=== PATIENT | female | born 2000 | race Caucasian/White ===

== ENCOUNTER 2018-05-14 10:40 | Emergency (ER) | payer MEDICAID, OTHER | END 2018-05-14 12:05 | disposition home or self-care (01) | LOC: FTE 10:40 | DX: J06.9 Acute upper respiratory infection, unspecified (principal) | CPT/HCPCS: 99284; Z7502 ==

== ENCOUNTER 2018-07-24 20:24 | Emergency (ER) | payer BC, MEDICAID ==
[2018-07-24 21:31] LABS: ADD MAN DIFF? NO
[2018-07-24] MEDS: KETOROLAC 30 MG INJ IV (21:35)
[2018-07-24] MEDS: SODIUM CHLORIDE 0.9% 1L BAG IV* (21:35)
[2018-07-24 21:38] LABS: WHITE BLOOD COUNT 4.5 10^3/ul (4.8-10.8)
[2018-07-24 21:38] LABS: BASOPHILS % 0.2 % (0.0-2.0); EOSINOPHILS % 0.2 % (0.0-7.0); HEMOGLOBIN 11.1 g/dl (12.0-16.0); LYMPHOCYTES # 0.7 10^3/ul (0.8-2.9); LYMPHOCYTES % 16.6 % (18.0-55.0); MEAN CORPUSCULAR HEMOGLOBIN 25.4 pg (29.0-33.0); MEAN CORPUSCULAR HGB CONC 30.8 g/dl (32.0-37.0); MEAN CORPUSCULAR VOLUME 82.4 fl (72.0-104.0); MEAN PLATELET VOLUME 10.8 fl (7.4-10.4); MONOCYTE # 0.7 10^3/ul (0.3-0.9); MONOCYTES % 15.4 % (0.0-13.0); NEUTROPHILS % 67.4 % (30.0-74.0); PLATELET COUNT 285 10^3/UL (140-415); RED BLOOD COUNT 4.37 10^6/ul (4.20-5.40); RED CELL DISTRIBUTION WIDTH 14.7 % (11.5-14.5)
[2018-07-24 21:56] LABS: INR 1.02; PROTIME 13.5 Sec (11.9-14.9); PT RATIO 1.1
[2018-07-24 21:57] LABS: PARTIAL THROMBOPLASTIN TIME 34.8 Sec (25.0-35.0)
[2018-07-24 21:58] LABS: ANION GAP 12 (8-16); BLOOD UREA NITROGEN 7 mg/dl (7-20); CALCIUM 9.3 mg/dl (8.4-10.2); CARBON DIOXIDE 27 mmol/L (21-31); CHLORIDE 104 mmol/L (97-110); CREATINE KINASE 70 IU/L (23-200); CREATININE 0.79 mg/dl (0.44-1.00); GLUCOSE 98 mg/dl (70-220); POTASSIUM 3.6 mmol/L (3.5-5.1); SODIUM 139 mmol/L (135-144)
[2018-07-24 21:59] LABS: LACTIC ACID 0.8 mmol/L (0.5-2.0)
[2018-07-24 22:10] LABS: CK-MB < 0.22 ng/ml (0.0-2.4); TROPONIN-I < 0.012 ng/ml (0.000-0.120)
[2018-07-24 22:11] LABS: ADD UMIC NO; UR ASCORBIC ACID NEGATIVE (NEGATIVE); UR BILIRUBIN (Dip) NEGATIVE (NEGATIVE); UR BLOOD (Dip) NEGATIVE (NEGATIVE); UR CLARITY SLIGHTLY CLOUDY (CLEAR); UR COLOR YELLOW (YELLOW); UR GLUCOSE (Dip) NEGATIVE (NEGATIVE); UR KETONES (Dip) NEGATIVE (NEGATIVE); UR LEUKOCYTE ESTERASE (Dip) NEGATIVE Leu/ul (NEGATIVE); UR NITRITE (Dip) NEGATIVE (NEGATIVE); UR RBC 2 /HPF (0-5); UR SPECIFIC GRAVITY (Dip) 1.021 (1.003-1.030); UR SQUAMOUS EPITHELIAL CELL FEW /HPF (FEW); UR TOTAL PROTEIN (Dip) NEGATIVE (NEGATIVE); UR UROBILINOGEN (Dip) NEGATIVE (NEGATIVE); UR WBC 2 /HPF (0-5)
== END 2018-07-24 22:46 | disposition home or self-care (01) ==
LOC: E/R 20:24
DX: B34.9 Viral infection, unspecified (principal); R00.0 Tachycardia, unspecified
CPT/HCPCS: 36415; 71045; 80048; 81001; 81003; 81025; 82550; 82553; 83605; 84484; 85025; 85610; 85730; 87040; 87086; 93005; 96374; 99285-25